=== PATIENT | female | born 1995 | race Caucasian/White ===

== ENCOUNTER 2020-03-03 00:11 | Emergency (ER) | payer OTHER, BC ==
[2020-03-03 00:18] VITALS: BP 132/86; PULSE 80; RESP 16; TEMP 98.1
[2020-03-03] MEDS ORDERED: LIDOCAINE 1% INJ 10MG/ML (20 ML MDV) SQ ONE (00:24)
[2020-03-03] MEDS ORDERED: BUPIVACAINE (PF) 0.25% 30 ML VIAL SQ STA (00:24)
--- NOTE | 2020-03-03 00:45 | ED ---
General Adult HPI - General Chief complaint: Extremity Injury, Lower Stated complaint: toe nail Time Seen by Provider: 03/03/20 00:21 Source: patient, RN notes reviewed Mode of arrival: ambulatory Limitations: no limitations - History of Present Illness Initial comments: 24-year-old female without any significant past medical history presents to the emergency department for left great toe pain. Patient states that the proximal part of her toenail came up. Patient states she tried rip it off but could not tolerate the pain so came to the emergency room. Patient denies any other injuries.Patient has no other complaints at this time including shortness of breath, chest pain, abdominal pain, nausea or vomiting, headache, or visual changes. - Related Data Allergies Allergy/AdvReac Type Severity Reaction Status Date / Time No Known Allergies Allergy Verified 03/03/20 00:18 Review of Systems ROS Statement: Those systems with pertinent positive or pertinent negative responses have been documented in the HPI. ROS Other: All systems not noted in ROS Statement are negative. Past Medical History Past Medical History: No Reported History History of Any Multi-Drug Resistant Organisms: None Reported Past Surgical History: No Surgical Hx Reported Past Psychological History: No Psychological Hx Reported Smoking Status: Never smoker Past Alcohol Use History: None Reported Past Drug Use History: None Reported General Exam Limitations: no limitations General appearance: alert, in no apparent distress Head exam: Present: atraumatic, normocephalic, normal inspection Eye exam: Present: normal appearance, PERRL, EOMI. Absent: scleral icterus, conjunctival injection, periorbital swelling ENT exam: Present: normal exam, mucous membranes moist Neck exam: Present: normal inspection, full ROM. Absent: tenderness, meningismus, lymphadenopathy Respiratory exam: Present: normal lung sounds bilaterally. Absent: respiratory distress, wheezes, rales, rhonchi, stridor Cardiovascular Exam: Present: regular rate, normal rhythm, normal heart sounds. Absent: systolic murmur, diastolic murmur, rubs, gallop, clicks Extremities exam: Present: other (patient has partial avulsion of left great toenail with lifting in the proximal nailbed.) Course Vital Signs 03/03/20 00:15 Temperature 98.1 F Pulse Rate 80 Respiratory 16 Rate Blood Pressure 132/86 O2 Sat by Pulse 98 Oximetry Medical Decision Making - Medical Decision Making digital block was performed on the left great toe. proximal nail fold was reduced. Toenail is currently in place. Patient will follow up with primary care. She'll return if she has any worsening symptoms. Disposition Clinical Impression: Avulsion of toenail Disposition: HOME SELF-CARE Condition: Good Instructions (If sedation given, give patient instructions): Nail Avulsion (ED) Additional Instructions: please try not to cause any additional trauma to the area. leave the nail alone for as long as possible. monitor for signs of infection such as redness or drainage. Follow-up with primary care in 1-2 days. Return to the emergency room for any worsening symptoms. Is patient prescribed a controlled substance at d/c from ED?: No Referrals: Edmund Plummer MD [REFERRING] - 1-2 days Time of Disposition: 00:53
== END 2020-03-03 01:00 | disposition home or self-care (01) ==
LOC: EC 00:11
DX: S91.202A Unspecified open wound of left great toe with damage to nail, initial encounter (principal); X58.XXXA Exposure to other specified factors, initial encounter
CPT/HCPCS: 99283; 64450; J2001